=== PATIENT | female | born 1995 | race Caucasian/White ===

== ENCOUNTER 2018-07-12 17:17 | Emergency (ER) | payer BC ==
[~2018-07-12] VITALS: Ht 152.4 cm; Wt 50.9 kg
--- NOTE | 2018-07-12 17:50 | NUR ---
PT REC'D TO ER C/O VB AWAITING EVALUATION BY ER PROVIDER.
[2018-07-12 18:27] LABS: BASOPHILS # (AUTO) 0.1 /CMM (0.0-0.2); BASOPHILS % (AUTO) 0.6 % (0.0-2.0); EOSINOPHILS % (AUTO) 0.9 % (0.0-6.0); HEMATOCRIT 41 % (33-45); HEMOGLOBIN 13.5 g/dL (11.5-14.8); MEAN CORPUSCULAR HGB CONC 33 g/dl (31.0-36.0); MEAN CORPUSCULAR VOLUME 85 fL (82-100); MONOCYTES # (AUTO) 0.4 /CMM (0.1-1.30); MONOCYTES % (AUTO) 3.9 % (2.0-12.0); NEUTROPHILS # (AUTO) 8.6 /CMM (1.8-8.9); NEUTROPHILS % (AUTO) 76.6 % (43.0-81.0); PLATELET COUNT (AUTO) 385 /CMM (150-450); RED BLOOD CELL COUNT(AUTO) 4.78 MIL/uL (4.0-5.2); WHITE BLOOD COUNT (AUTO) 11.2 K/uL (4.3-11.0)
--- NOTE | 2018-07-12 18:27 | NUR ---
IV STARTED LEFT AC 18G IVPB END TIME TYPE AND SCREEN DONE . SMALL AMOUNT BLOODVAG AND STOOL . FOR 4 DAYS. 9 WEEKS PREG. ONE MISSED AB
[2018-07-12] MEDS ORDERED: IV NS 0.9% 1,000 ML BAG IV ONE (18:30)
[2018-07-12 18:39] LABS: INR 0.98 (0.85-1.15)
[2018-07-12 18:42] LABS: CALCIUM, SERUM 9.1 mg/dL (8.5-10.1); CREATININE 0.6 mg/dL (0.6-1.3); POTASSIUM 3.6 mmol/L (3.5-5.1)
[2018-07-12 19:08] LABS: ALBUMIN 3.7 g/dL (3.4-5.0); BILIRUBIN,DIRECT 0.1 mg/dL (0.0-0.2); BILIRUBIN,TOTAL 0.3 mg/dL (0.2-1.0); TOTAL PROTEIN, SERUM 8.1 g/dL (6.4-8.2)
--- NOTE | 2018-07-12 19:15 | NUR ---
REPORT RECEIVED FROM JUDE LAROSN FOR LO.
--- NOTE | 2018-07-12 19:20 | NUR ---
URINE SPECIMEN OBTAINED AND SENT TO THE LAB.
[2018-07-12 20:01] LABS: APPEARANCE,URINE Clear (CLEAR); BILIRUBIN,URINE Negative (NEGATIVE); BLOOD, URINE Negative Ery/uL (NEGATIVE); COLOR,URINE Yellow (YELLOW); KETONES,URINE Negative (NEGATIVE); LEUKOCYTE ESTERASE ,URINE Trace (NEGATIVE); NITRITE, URINE Negative (NEGATIVE); PROTEIN,URINE Negative (NEGATIVE); UGLUCOSE Negative (NEGATIVE); UROBILINOGEN,URINE 0.2 EU/dL (0.2)
[2018-07-12 20:12] LABS: BACTERIA,URINE 1+ /HPF (None Seen); RBC,URINE NONE SEEN /HPF (0-2); SQUAMOUS EPITHELIAL CELL,UR Few /HPF (None Seen)
[2018-07-12] MEDS ORDERED: ACETAMINOPHEN 325 MG TABLET PO ONE (20:30)
--- NOTE | 2018-07-12 20:46 | NUR ---
IV removed. Catheter intact and site benign. Pressure and 4x4 applied to site. No bleeding noted. Patient discharged to home in stable condition. Written and verbal after care instructions given. Patient verbalizes understanding of instruction. Patient ambulatory with a steady gait.
[2018-07-12 20:47] VITALS: BP 124/78
== END 2018-07-12 20:48 | disposition home or self-care (01) ==
LOC: ER 17:19
DX: O23.41 Unspecified infection of urinary tract in pregnancy, first trimester (principal); Z3A.09 9 weeks gestation of pregnancy; Z98.890 Other specified postprocedural states
CPT/HCPCS: 36415; 76805; 80048; 80076; 81001; 84702; 85025; 85730; 87086; 96360; 99285; J7030; 81000-TC; A4606; Z7610

== ENCOUNTER 2023-05-07 06:11 | Emergency (ER) | payer SELFPAY ==
[~2023-05-07] VITALS: Ht 154.9 cm; Wt 52.2 kg
[2023-05-07 06:30] VITALS: BP 118/70; TEMP 98.6
[2023-05-07] MEDS ORDERED: KETOROLAC TROMETHAMINE 15 MG/ML VIAL ONE (06:52)
[2023-05-07] MEDS ORDERED: AMOX/CLAVULANATE 875 MG TABLET ONE (06:52)
[2023-05-07] MEDS ORDERED: AMOX/CLAVULANATE 875 MG TABLET PO ONE (07:00)
[2023-05-07] MEDS ORDERED: KETOROLAC TROMETHAMINE INJ 30 MG/ML VIAL IM ONE (07:00)
[2023-05-07] MEDS ORDERED: IBUP-1955 PO (08:06)
[2023-05-07] MEDS ORDERED: AMOX-430 PO (08:06)
[2023-05-07 08:16] VITALS: O2SAT 99
== END 2023-05-07 08:16 | disposition home or self-care (01) ==
LOC: ER 06:13
DX: K08.89 Other specified disorders of teeth and supporting structures (principal); Z98.890 Other specified postprocedural states
CPT/HCPCS: 99283; 96372; J1885